=== PATIENT | female | born 1985 | race Caucasian/White ===

== ENCOUNTER → 2017-01-27 | Outpatient (CLI) | payer OTHER | LOC: RAD 16:21 | PROVIDERS: ATTEND Internal Medicine Critical Care Medicine | DX: Z02.9 Encounter for administrative examinations, unspecified (principal) ==

== ENCOUNTER 2018-04-06 14:12 | Day surgery (SDC) | payer OTHER ==
[~2018-04-06] VITALS: Ht 170.2 cm; Wt 78.0 kg
[~2018-04-06 14:12] MED LIST: AMOX875T PO; BIOT1TAB2 PO; ESTR2TAB PO; MULT-642 PO; OXYB5TAB7 PO
[2018-04-06] MEDS ORDERED: ACETAMINOPHEN 500 MG TABLET PO ONE (14:30)
[2018-04-06] MEDS ORDERED: ONDANSETRON ODT 8 MG PO ONE (14:30)
[2018-04-06] MEDS ORDERED: LACTATED RINGERS 1,000 ML IV SCH (14:35)
[2018-04-06 14:38] VITALS: BP 124/86
[2018-04-06] MEDS ORDERED: MIDAZOLAM 1 MG/ML, 2ML ONE (16:16)
[2018-04-06] MEDS ORDERED: FENTANYL PF 100 MCG/2ML ONE ×2 (16:16→18:28)
[2018-04-06] MEDS ORDERED: PROMETHAZINE 12.5 MG SUPP PR PRN (16:30)
[2018-04-06] MEDS ORDERED: MORPHINE SULFATE 4 MG/ML, 1ML IVPush PRN (16:30)
[2018-04-06] MEDS ORDERED: PROMETHAZINE 25 MG/ML, 1ML IV PRN (16:30)
[2018-04-06] MEDS ORDERED: OXYcodone 5 MG/5 ML ORAL.SOL UDC PO PRN (16:30)
[2018-04-06] MEDS ORDERED: PROMETHAZINE 25 MG/ML, 1ML IM PRN ×2 (16:30)
[2018-04-06] MEDS ORDERED: ONDANSETRON 2MG/ML, 2ML IV PRN (16:30)
[2018-04-06] MEDS ORDERED: PROMETHAZINE 25 MG SUPP PR PRN (16:30)
[2018-04-06] MEDS ORDERED: hydrALAzine 20 MG/ML, 1ML IV PRN (16:30)
[2018-04-06] MEDS ORDERED: ONDANSETRON ODT 8 MG PO PRN (16:30)
[2018-04-06] MEDS ORDERED: HYDROmorphone 2 MG/ML, 1ML IVPush PRN (16:30)
[2018-04-06] MEDS ORDERED: MEPERIDINE/PF 25MG/0.5ML IVPush PRN (16:30)
[2018-04-06] MEDS ORDERED: LABETALOL 5MG/ML, 20ML IV PRN (16:30)
[2018-04-06] MEDS ORDERED: PROPOFOL 10 MG/ML, 20ML ONE (16:56)
[2018-04-06] MEDS ORDERED: BACITRACIN OINT 500U/GM, 15 GM ONE (18:13)
[2018-04-06] MEDS ORDERED: OXYcodone 5 MG/5 ML ORAL.SOL UDC ONE (18:28)
[2018-04-06] MEDS: FENTANYL PF 100 MCG/2ML IV PRN ×2 (18:31→18:50)
[2018-04-06] MEDS ORDERED: HYDROmorphone 1 MG/ML, 1ML ONE (19:03)
== END 2018-04-06 21:55 | disposition home or self-care (01) ==
LOC: OR 14:12 → 4NOR 19:41 → OR 21:55
PROVIDERS: ATTEND Urology
DX: N35.028 Other post-traumatic urethral stricture, female (principal); Z72.89 Other problems related to lifestyle; Z87.891 Personal history of nicotine dependence; Z98.890 Other specified postprocedural states
CPT/HCPCS: 52276; 53430; 88305; C1769; J1170; J2250; J2704; J3010; J7120; Q0162; G0378